=== PATIENT | male | born 1960 | race African-American/Black ===

== ENCOUNTER 2016-10-31 10:06 | Emergency (ER) | payer SELFPAY ==
[~2016-10-31] VITALS: Ht 177.8 cm; Wt 80.0 kg
[2016-10-31] MEDS ORDERED: SODIUM CHLORIDE 0.9% 1,000 ML IV ONE (10:43)
[2016-10-31 11:12] LABS: BASOPHILS % 2.4 % (0.0-2.0); EOSINOPHILS % 1.3 % (0.0-5.0); HEMATOCRIT. 39.4 % (42.0-52.0); HEMOGLOBIN. 13.2 g/dL (14.0-18.0); MEAN CORPUSCULAR HEMOGLOBIN 33.4 pg (28.0-32.0); MEAN CORPUSCULAR HGB CONC 33.6 g/dL (31.0-37.0); MEAN CORPUSCULAR VOLUME 99.3 fL (80.0-94.0); MEAN PLATELET VOLUME 7.6 fl (7.4-10.4); MONOCYTES % 9.8 % (2.0-8.0); NEUTROPHILS % 60.5 % (40.0-76.0); PLATELET 189 x1000/uL (130-400); RED BLOOD CELL COUNT 3.97 mill/uL (4.7-6.1); RED CELL DISTRIBUTION WIDTH 15.6 % (11.6-14.6); WHITE BLOOD COUNT 5.5 x1000/uL (4.5-11.0)
[2016-10-31 11:16] LABS: CHLORIDE 107 mEq/L (98-107); INDEX HEMOLYSI 1 (1-3); INDEX ICTERIC 1 (1-4); INDEX LIPEMIC 1 (1-3)
[2016-10-31 11:25] LABS: ALANINE AMINOTRANSFERASE 18 IU/L (13-61); ALBUMIN 3.4 g/dL (3.4-5.0); ANION GAP 13; CALCIUM 7.8 mg/dL (8.5-10.1); CARBON DIOXIDE 27 mEq/L (21-32); UREA NITROGEN BLOOD 7 mg/dL (7-21); eGFR > 60 mL/min (>60)
[2016-10-31 11:31] LABS: ETHANOL BLOOD 347 mg/dL
[2016-10-31 13:30] VITALS: BP 115/62
== END 2016-10-31 16:32 | disposition home or self-care (01) ==
LOC: ER 11:18
DX: F10.129 Alcohol abuse with intoxication, unspecified (principal); F41.9 Anxiety disorder, unspecified
CPT/HCPCS: 36415; 70450; 71010; 80053; 85025; 96360; 96361; 99285; G0482; J7030; Z7610